=== PATIENT | male | born 1980 | race Caucasian/White ===

== ENCOUNTER 2019-12-11 14:42 | Emergency (ER) | payer OTHER, SELFPAY ==
[2019-12-11 14:52] VITALS: BP 149/82; PULSE 88; RESP 18; TEMP 36.8; O2SAT 99
--- NOTE | 2019-12-11 15:12 | ED.DENTAL ---
HPI - Dental/Oral General Chief complaint: Dental/Oral Stated complaint: Tooth Pain Source: patient Mode of arrival: ambulatory Limitations: no limitations History of Present Illness HPI Narrative: Patient is a 39-year-old male who presents with complaints of swelling to right face x1 day. Patient reports right upper dental pain x1.5 weeks. Patient reports awaking this a.m. with swelling to face. He reports taking ibuprofen for pain relief. He also reports using ice. He denies visual difficulties, ear pain, difficulty swallowing or maintaining secretions. MD Complaint: tooth pain Related Data Allergies Allergy/AdvReac Type Severity Reaction Status Date / Time codeine Allergy Unknown Nausea and Verified 12/11/19 15:04 Vomiting Review of Systems Review of Systems: Narrative: CONSTITUTIONAL: Denies fever, chills, or sweats. EYES: Denies visual changes, redness, or discharge. ENT: Denies rhinorrhea, congestion, sore throat, or otalgia. Reports right upper dental pain, facial swelling CARDIOVASCULAR: Denies chest pain, palpitations, or edema. RESPIRATORY: Denies cough or dyspnea. GASTROINTESTINAL: Denies abdominal pain, nausea, vomiting, or diarrhea. GENITOURINARY: Denies dysuria or hematuria. SKIN: Denies rash or itching. MUSCULOSKELETAL: Denies back pain, joint pain, or myalgia. NEUROLOGIC: Denies headache, numbness, dizziness, or weakness. PSYCHIATRIC: Denies anxiety or depression. [facility] Past Medical History Medical History ADHD Asthma MRSA infection No significant family history Recurrent kidney stones Surgical History Surgical History No significant past surgical history Social History Social History (Updated 12/11/19 @ 15:16 by LENO Del Rosario) Smoking status: Current every day smoker Alcohol intake: current Alcohol use details: Occasional Substance use: never Occupation/Education: occupation Exam Narrative: Exam Narrative: GENERAL: Well-appearing, well-nourished, and in no acute distress. HEAD: Normocephalic, atraumatic. EYES: No redness or drainage. ENT: Mucous membranes pink and moist. Nares clear. No rhinorrhea. TMs normal bilaterally. Throat normal. Uvula midline. Edema to right cheek, multiple dental caries NECK: AROM. Supple. No lymphadenopathy. CHEST: No respiratory distress. HEART: Regular rate and rhythm. EXTREMITIES: Normal range of motion. No edema. SKIN: Warm, dry, no rash. NEURO: No focal deficits. Alert and oriented x3. Gait steady. PSYCH: Normal affect. No signs of depression or anxiety. Course Vital Signs Vital signs: Vital Signs Temperature 36.8 C 12/11/19 14:52 Pulse Rate 88 12/11/19 14:52 Respiratory Rate 18 12/11/19 14:52 Blood Pressure 149/82 H 12/11/19 14:52 Pulse Oximetry 99 12/11/19 14:52 Temperature 36.8 C 12/11/19 14:52 Pulse Rate 88 12/11/19 14:52 Respiratory Rate 18 12/11/19 14:52 Blood Pressure 149/82 H 12/11/19 14:52 Pulse Oximetry 99 12/11/19 14:52 Reviewed. Patient has been instructed to follow-up with his PCP regarding his blood pressure. MDM - Dental/Oral MDM Narrative Medical decision making narrative: Patient most likely has facial swelling from poor dentition. Multiple dental caries, reports history of dental abscesses in the past. Patient refused vision exam. Patient to be started on oral antibiotics at this time. He is aware if swelling increases, that he may need to be seen in the emergency department for further evaluation. Patient is stable for discharge to home with outpatient follow-up with dentist. Differential Diagnosis Differential diagnosis: Likely dental caries and dental abscess Critical Care Time Critical Care Time Critical Care Time: No Discharge Plan Discharge Clinical Impression: Toothache, Dental caries, Dental abscess Patient Disposition: Home,
== END 2019-12-11 15:28 | disposition home or self-care (01) ==
PROVIDERS: Emergency Provider Nurse Practitioner
DX: K08.89 Other specified disorders of teeth and supporting structures (principal); K02.9 Dental caries, unspecified; K04.7 Periapical abscess without sinus; F17.200 Nicotine dependence, unspecified, uncomplicated; J45.909 Unspecified asthma, uncomplicated; Z86.14 Personal history of Methicillin resistant Staphylococcus aureus infection
CPT/HCPCS: 99213; G0463